=== PATIENT | male | born 1980 | race Caucasian/White ===

== ENCOUNTER 2023-10-30 17:42 | Inpatient (IN) ==
[2023-10-30] MEDS ORDERED: 0.9 % SODIUM CHLORIDE 1,000 ML IV ONE (17:51)
[2023-10-30 18:48] LABS: Basophils # (Auto) 0.04 K/mcL (0.00-0.30); Basophils % (Auto) 0.4 % (0.0-2.0); Eosinophils # (Auto) 0.14 K/mcL (0.00-0.70); Eosinophils % (Auto) 1.5 % (0.0-7.0); Hematocrit 44.3 % (40.1-51.0); Hemoglobin 15.2 g/dL (13.7-17.5); Lymphocytes # (Auto) 1.69 K/mcL (1.50-4.80); Lymphocytes % (Auto) 17.9 % (15.5-49.0); Mean Cell Volume 96.3 fL (80.0-100.0); Mean Corpuscular HGB Conc 34.3 g/dL (31.0-36.0); Mean Platelet Volume 9.9 fL (8.8-12.5); Monocytes # (Auto) 1.34 K/mcL (0.10-0.90); Monocytes % (Auto) 14.2 % (1.0-12.0); Neutrophils % (Auto) 65.6 % (38.0-78.0); Platelet Count 149 K/mcL (140-440); Red Cell Distribution Width 12.7 % (11.5-14.5); WBC 9.4 K/mcL (4.5-11.0)
[2023-10-30 18:51] LABS: ALT/SGPT 55 U/L (<40); AST/SGOT 69 U/L (<40); Albumin 3.8 gm/dL (3.2-5.2); Albumin/Globulin Ratio 1.1 (1.0-2.3); Alkaline Phosphatase 72 U/L (39-117); Bilirubin,Total 0.8 mg/dL (0.1-1.0); Blood Urea Nitrogen 6 mg/dL (6-20); Carbon Dioxide 23 mmol/L (22-30); Chloride 96 mmol/L (96-108); Globulin 3.4 gm/dL (2.2-3.7); Glomerular Filtration Rate 117; Glucose 112 mg/dL (70-105)
[2023-10-30] MEDS ORDERED: LORazepam 1 MG TABLET PO ONE (19:18)
[2023-10-30] MEDS ORDERED: VANCOMYCIN 1,000 MG in 0.9 % SODIUM CHLORIDE 250 ML IV ONE ×2 (20:07→22:15)
[2023-10-30] MEDS ORDERED: HYDROmorphone 0.5 MG/0.5 ML SYRINGE IV PRN (20:14)
[2023-10-30] MEDS ORDERED: 0.9 % SODIUM CHLORIDE 100 ML IV ONE (20:24)
[2023-10-30] MEDS: AMPICILLIN SODIUM/SULBACTAM NA 3 GM in 0.9 % SODIUM CHLORIDE 100 ML IV SCH (20:39)
[2023-10-30] MEDS ORDERED: POTASSIUM CHLORIDE 20 MEQ TABLET PO ONE (21:30)
[2023-10-30] MEDS ORDERED: ONDANSETRON 4 MG/2 ML VIAL IV PRN (21:30)
[2023-10-30] MEDS ORDERED: VANCOMYCIN PER PHARMACY IV ONE (21:30)
[2023-10-30] MEDS ORDERED: 0.9 % SODIUM CHLORIDE 10 ML SYRINGE IV SCH (22:00)
[2023-10-30] MEDS ORDERED: DIAZEPAM 10 MG/2 ML SYRINGE IV PRN (22:04)
[2023-10-30] MEDS ORDERED: DIAZEPAM 10 MG/2 ML SYRINGE ONE (22:19)
[2023-10-30] MEDS: 0.9 % SODIUM CHLORIDE 1,000 ML IV SCH (22:30)
[2023-10-30] MEDS: KETOROLAC 15 MG/ML VIAL IV PRN (22:43)
[2023-10-30] MEDS: ACETAMINOPHEN 325 MG TABLET PO PRN (22:44)
[2023-10-30] MEDS: 0.9 % SODIUM CHLORIDE 10 ML SYRINGE IV SCH (23:06)
[2023-10-31 00:02] LABS: Amphetamine Screen,Urine None detected; Barbiturate Screen,Urine None detected; Benzodiazepines Screen,Urine None detected; Cannabinoid Screen,Urine Suspect Positive; Cocaine Screen,Urine None detected; Opiate Screen,Urine Suspect Positive; Oxycodone, Urine Screen None detected; Phencyclidine Screen,Urine None detected
[2023-10-31] MEDS: SENNOSIDES 1 TABLET PO SCH ×2 (00:28→21:31)
[2023-10-31] MEDS: AMPICILLIN SODIUM/SULBACTAM NA 3 GM in 0.9 % SODIUM CHLORIDE 100 ML IV SCH ×4 (02:25→20:20)
[2023-10-31] MEDS: ACETAMINOPHEN 325 MG TABLET PO PRN ×2 (06:02→20:25)
[2023-10-31] MEDS: KETOROLAC 15 MG/ML VIAL IV PRN (06:02)
[2023-10-31 06:49] LABS: Basophils # (Auto) 0.06 K/mcL (0.00-0.30); Basophils % (Auto) 0.7 % (0.0-2.0); Eosinophils # (Auto) 0.18 K/mcL (0.00-0.70); Eosinophils % (Auto) 2.1 % (0.0-7.0); Hematocrit 41.7 % (40.1-51.0); Hemoglobin 14.2 g/dL (13.7-17.5); Lymphocytes # (Auto) 1.61 K/mcL (1.50-4.80); Mean Cell Volume 97.9 fL (80.0-100.0); Mean Corpuscular HGB Conc 34.1 g/dL (31.0-36.0); Mean Platelet Volume 9.6 fL (8.8-12.5); Monocytes # (Auto) 1.66 K/mcL (0.10-0.90); Monocytes % (Auto) 19.6 % (1.0-12.0); Neutrophils % (Auto) 58.1 % (38.0-78.0); Platelet Count 127 K/mcL (140-440); RBC 4.26 M/mcL (4.63-6.08); Red Cell Distribution Width 12.8 % (11.5-14.5); WBC 8.5 K/mcL (4.5-11.0)
[2023-10-31] MEDS: 0.9 % SODIUM CHLORIDE 1,000 ML IV SCH (06:56)
[2023-10-31] MEDS: LORazepam 2 MG/ML VIAL IV PRN ×3 (07:03→17:43)
[2023-10-31] MEDS: 0.9 % SODIUM CHLORIDE 10 ML SYRINGE IV SCH ×2 (07:15→14:21)
[2023-10-31 07:20] LABS: ALT/SGPT 43 U/L (<40); AST/SGOT 60 U/L (<40); Albumin 3.2 gm/dL (3.2-5.2); Albumin/Globulin Ratio 0.9 (1.0-2.3); Alkaline Phosphatase 77 U/L (39-117); Bilirubin,Direct 0.4 mg/dL (<0.3); Bilirubin,Total 0.8 mg/dL (0.1-1.0); Blood Urea Nitrogen 7 mg/dL (6-20); Calcium 8.5 mg/dL (8.6-10.4); Carbon Dioxide 19 mmol/L (22-30); Chloride 99 mmol/L (96-108); Globulin 3.4 gm/dL (2.2-3.7); Glomerular Filtration Rate 124; Glucose 90 mg/dL (70-105); Lactate Dehydrogenase 204 U/L (135-225); Phosphorous 3.8 mg/dL (2.5-4.5); Triglycerides 119 mg/dL (<150); Uric Acid 4.5 mg/dL (2.5-8.0)
[2023-10-31] MEDS ORDERED: VANCOMYCIN PER PHARMACY IV SCH (07:45)
[2023-10-31] MEDS ORDERED: IOPAMIDOL 100 ML BOTTLE IV ONE (09:21)
[2023-10-31] MEDS: ENOXAPARIN 40 MG/0.4 ML SYRINGE SQ SCH (09:30)
[2023-10-31] MEDS: VANCOMYCIN 2,000 MG in 0.9 % SODIUM CHLORIDE 500 ML IV SCH ×2 (10:00→21:27)
[2023-10-31] MEDS: MELOXICAM 7.5 MG TABLET PO SCH (11:34)
[2023-10-31] MEDS: DULoxetine 30 MG CAPSULE PO SCH (11:34)
[2023-10-31] MEDS: oxyCODONE IR 5 MG TABLET PO PRN ×2 (17:38→21:31)
[2023-10-31] MEDS: buPROPion 150 MG TAB.SR.12H PO SCH (20:20)
[2023-10-31] MEDS: HYDROmorphone 0.5 MG/0.5 ML SYRINGE IV PRN (23:51)
[2023-11-01] MEDS: DIAZEPAM 10 MG/2 ML SYRINGE IV PRN ×3 (00:27→23:17)
[2023-11-01] MEDS: AMPICILLIN SODIUM/SULBACTAM NA 3 GM in 0.9 % SODIUM CHLORIDE 100 ML IV SCH ×4 (02:39→22:06)
[2023-11-01] MEDS: 0.9 % SODIUM CHLORIDE 10 ML SYRINGE IV SCH ×4 (02:54→21:24)
[2023-11-01] MEDS: oxyCODONE IR 5 MG TABLET PO PRN ×4 (05:48→22:16)
[2023-11-01] MEDS: ACETAMINOPHEN 325 MG TABLET PO PRN ×3 (05:48→23:18)
[2023-11-01 06:29] LABS: Basophils # (Auto) 0.09 K/mcL (0.00-0.30); Basophils % (Auto) 1.3 % (0.0-2.0); Eosinophils # (Auto) 0.32 K/mcL (0.00-0.70); Eosinophils % (Auto) 4.5 % (0.0-7.0); Hematocrit 43.3 % (40.1-51.0); Lymphocytes # (Auto) 1.84 K/mcL (1.50-4.80); Lymphocytes % (Auto) 25.7 % (15.5-49.0); Mean Cell Volume 95.4 fL (80.0-100.0); Mean Corpuscular HGB Conc 34.6 g/dL (31.0-36.0); Mean Platelet Volume 9.4 fL (8.8-12.5); Monocytes # (Auto) 1.34 K/mcL (0.10-0.90); Monocytes % (Auto) 18.7 % (1.0-12.0); Neutrophils % (Auto) 49.4 % (38.0-78.0); Platelet Count 154 K/mcL (140-440); RBC 4.54 M/mcL (4.63-6.08); Red Cell Distribution Width 12.6 % (11.5-14.5); WBC 7.2 K/mcL (4.5-11.0)
[2023-11-01 06:43] LABS: ALT/SGPT 49 U/L (<40); AST/SGOT 75 U/L (<40); Albumin 3.4 gm/dL (3.2-5.2); Alkaline Phosphatase 86 U/L (39-117); Bilirubin,Direct 0.4 mg/dL (<0.3); Bilirubin,Total 0.7 mg/dL (0.1-1.0); Blood Urea Nitrogen 6 mg/dL (6-20); Calcium 8.7 mg/dL (8.6-10.4); Carbon Dioxide 21 mmol/L (22-30); Chloride 101 mmol/L (96-108); Globulin 3.4 gm/dL (2.2-3.7); Glomerular Filtration Rate 124; Glucose 90 mg/dL (70-105); Lactate Dehydrogenase 185 U/L (135-225); Phosphorous 4.1 mg/dL (2.5-4.5); Triglycerides 129 mg/dL (<150); Uric Acid 4.2 mg/dL (2.5-8.0)
[2023-11-01] MEDS: OMEPRAZOLE 20 MG CAPSULE PO SCH (09:07)
[2023-11-01] MEDS: DULoxetine 30 MG CAPSULE PO SCH (09:07)
[2023-11-01] MEDS: buPROPion 150 MG TAB.SR.12H PO SCH ×2 (09:07→21:24)
[2023-11-01] MEDS: ENOXAPARIN 40 MG/0.4 ML SYRINGE SQ SCH (09:08)
[2023-11-01] MEDS: VANCOMYCIN 2,000 MG in 0.9 % SODIUM CHLORIDE 500 ML IV SCH (09:08)
[2023-11-01] MEDS: MELOXICAM 7.5 MG TABLET PO SCH (09:08)
[2023-11-01] MEDS ORDERED: LISINOPRIL 5 MG TABLET PO SCH (10:05)
[2023-11-01] MEDS: VANCOMYCIN 1,500 MG in 0.9 % SODIUM CHLORIDE 500 ML IV SCH ×2 (19:52→20:04)
[2023-11-01] MEDS: SENNOSIDES 1 TABLET PO SCH (21:23)
[2023-11-01] MEDS ORDERED: amLODIPine 5 MG TABLET PO SCH (21:30)
[2023-11-02] MEDS: DIAZEPAM 10 MG/2 ML SYRINGE IV PRN ×2 (00:28→08:55)
[2023-11-02] MEDS: AMPICILLIN SODIUM/SULBACTAM NA 3 GM in 0.9 % SODIUM CHLORIDE 100 ML IV SCH ×4 (02:44→19:48)
[2023-11-02] MEDS: VANCOMYCIN 1,500 MG in 0.9 % SODIUM CHLORIDE 500 ML IV SCH ×3 (04:02→20:15)
[2023-11-02] MEDS: 0.9 % SODIUM CHLORIDE 10 ML SYRINGE IV SCH ×3 (06:28→21:09)
[2023-11-02 06:56] LABS: ALT/SGPT 61 U/L (<40); AST/SGOT 93 U/L (<40); Albumin 3.4 gm/dL (3.2-5.2); Albumin/Globulin Ratio 0.9 (1.0-2.3); Alkaline Phosphatase 130 U/L (39-117); Bilirubin,Direct 0.4 mg/dL (<0.3); Bilirubin,Total 0.7 mg/dL (0.1-1.0); Blood Urea Nitrogen 7 mg/dL (6-20); Calcium 8.8 mg/dL (8.6-10.4); Carbon Dioxide 23 mmol/L (22-30); Chloride 100 mmol/L (96-108); Globulin 3.6 gm/dL (2.2-3.7); Glomerular Filtration Rate 117; Glucose 91 mg/dL (70-105); Lactate Dehydrogenase 446 U/L (135-225); Phosphorous 4.1 mg/dL (2.5-4.5); Triglycerides 133 mg/dL (<150); Uric Acid 4.8 mg/dL (2.5-8.0)
[2023-11-02 07:23] LABS: Hepatitis C Virus Antibody Non-Reactive (Non-Reactive)
[2023-11-02] MEDS: OMEPRAZOLE 20 MG CAPSULE PO SCH (08:02)
[2023-11-02] MEDS: ENOXAPARIN 40 MG/0.4 ML SYRINGE SQ SCH (08:47)
[2023-11-02] MEDS: LISINOPRIL 5 MG TABLET PO SCH (08:48)
[2023-11-02] MEDS: DULoxetine 30 MG CAPSULE PO SCH (08:48)
[2023-11-02] MEDS: oxyCODONE IR 5 MG TABLET PO PRN ×3 (08:48→19:45)
[2023-11-02] MEDS: amLODIPine 5 MG TABLET PO SCH (08:49)
[2023-11-02] MEDS: buPROPion 150 MG TAB.SR.12H PO SCH ×2 (08:49→20:14)
[2023-11-02] MEDS: MELOXICAM 7.5 MG TABLET PO SCH (08:50)
[2023-11-02] MEDS: LORazepam 2 MG/ML VIAL IV PRN (13:27)
[2023-11-02] MEDS: ACETAMINOPHEN 325 MG TABLET PO PRN (14:26)
[2023-11-02] MEDS ORDERED: amLODIPine 5 MG TABLET PO SCH (18:40)
[2023-11-02] MEDS: SENNOSIDES 1 TABLET PO SCH (20:16)
[2023-11-02] MEDS: HYDROmorphone 0.5 MG/0.5 ML SYRINGE IV PRN (23:16)
[2023-11-03] MEDS: LORazepam 2 MG/ML VIAL IV PRN (00:19)
[2023-11-03] MEDS: AMPICILLIN SODIUM/SULBACTAM NA 3 GM in 0.9 % SODIUM CHLORIDE 100 ML IV SCH ×3 (02:16→14:49)
[2023-11-03] MEDS: VANCOMYCIN 1,500 MG in 0.9 % SODIUM CHLORIDE 500 ML IV SCH ×2 (02:59→11:11)
[2023-11-03] MEDS: 0.9 % SODIUM CHLORIDE 10 ML SYRINGE IV SCH ×4 (05:51→21:30)
[2023-11-03] MEDS: LISINOPRIL 5 MG TABLET PO SCH (08:16)
[2023-11-03] MEDS: MELOXICAM 7.5 MG TABLET PO SCH (08:17)
[2023-11-03] MEDS: buPROPion 150 MG TAB.SR.12H PO SCH ×2 (08:17→21:28)
[2023-11-03] MEDS: amLODIPine 5 MG TABLET PO SCH (08:17)
[2023-11-03] MEDS: DULoxetine 30 MG CAPSULE PO SCH (08:17)
[2023-11-03] MEDS: oxyCODONE IR 5 MG TABLET PO PRN ×2 (08:17→15:02)
[2023-11-03] MEDS: ENOXAPARIN 40 MG/0.4 ML SYRINGE SQ SCH (08:17)
[2023-11-03] MEDS: OMEPRAZOLE 20 MG CAPSULE PO SCH (08:17)
[2023-11-03] MEDS ORDERED: 0.9 % SODIUM CHLORIDE 10 ML SYRINGE IV PRN (11:26)
[2023-11-03] MEDS: AMOXICILLIN/POTASSIUM CLAV 875 MG TABLET PO SCH (16:56)
[2023-11-03] MEDS: DAPTOmycin 500 MG VIAL IV SCH (19:30)
[2023-11-03] MEDS: ACETAMINOPHEN 325 MG TABLET PO PRN (19:30)
[2023-11-03] MEDS: SENNOSIDES 1 TABLET PO SCH (21:29)
[2023-11-04 06:47] LABS: Basophils # (Auto) 0.13 K/mcL (0.00-0.30); Basophils % (Auto) 1.4 % (0.0-2.0); Eosinophils # (Auto) 0.25 K/mcL (0.00-0.70); Eosinophils % (Auto) 2.6 % (0.0-7.0); Hematocrit 48.2 % (40.1-51.0); Hemoglobin 16.2 g/dL (13.7-17.5); Lymphocytes # (Auto) 2.91 K/mcL (1.50-4.80); Lymphocytes % (Auto) 30.5 % (15.5-49.0); Mean Corpuscular HGB Conc 33.6 g/dL (31.0-36.0); Mean Platelet Volume 9.4 fL (8.8-12.5); Monocytes # (Auto) 1.02 K/mcL (0.10-0.90); Monocytes % (Auto) 10.7 % (1.0-12.0); Neutrophils % (Auto) 53.8 % (38.0-78.0); Platelet Count 245 K/mcL (140-440); RBC 4.92 M/mcL (4.63-6.08); Red Cell Distribution Width 12.6 % (11.5-14.5); WBC 9.5 K/mcL (4.5-11.0)
[2023-11-04 07:10] LABS: ALT/SGPT 75 U/L (<40); AST/SGOT 115 U/L (<40); Albumin 3.7 gm/dL (3.2-5.2); Albumin/Globulin Ratio 0.8 (1.0-2.3); Alkaline Phosphatase 123 U/L (39-117); Bilirubin,Direct < 0.2 mg/dL (0-0.3); Bilirubin,Total 0.6 mg/dL (0.1-1.0); Blood Urea Nitrogen 7 mg/dL (6-20); Calcium 9.4 mg/dL (8.6-10.4); Carbon Dioxide 22 mmol/L (22-30); Chloride 100 mmol/L (96-108); Globulin 4.5 gm/dL (2.2-3.7); Glomerular Filtration Rate 117; Glucose 98 mg/dL (70-105); Lactate Dehydrogenase 291 U/L (135-225); Phosphorous 4.7 mg/dL (2.5-4.5); Triglycerides 116 mg/dL (<150); Uric Acid 5.1 mg/dL (2.5-8.0)
[2023-11-04] MEDS: AMOXICILLIN/POTASSIUM CLAV 875 MG TABLET PO SCH (07:39)
[2023-11-04] MEDS: OMEPRAZOLE 20 MG CAPSULE PO SCH (07:39)
[2023-11-04] MEDS: ENOXAPARIN 40 MG/0.4 ML SYRINGE SQ SCH (08:55)
[2023-11-04] MEDS: DAPTOmycin 500 MG VIAL IV SCH (08:55)
[2023-11-04] MEDS: LISINOPRIL 5 MG TABLET PO SCH (08:56)
[2023-11-04] MEDS: buPROPion 150 MG TAB.SR.12H PO SCH (08:56)
[2023-11-04] MEDS: DULoxetine 30 MG CAPSULE PO SCH (08:56)
[2023-11-04] MEDS: 0.9 % SODIUM CHLORIDE 10 ML SYRINGE IV SCH (08:56)
[2023-11-04] MEDS: MELOXICAM 7.5 MG TABLET PO SCH (08:56)
[2023-11-04] MEDS ORDERED: LORazepam 2 MG/ML VIAL IV ONE (14:43)
[2023-11-10 14:50] LABS: Cefepime 1 S; Erythromycin <=0.120 S; Source: BLOOD CULTURE
== END 2023-11-04 15:35 | disposition home or self-care (01) | DRG 872 ==
LOC: ED 17:42 → MEDSUR 21:19
PROVIDERS: ADMIT Internal Medicine; ATTEND Internal Medicine